=== PATIENT | female | born 1960 | race Caucasian/White ===

== ENCOUNTER → 2022-05-24 | Outpatient (CLI) | payer OTHER ==
--- NOTE | 2022-05-24 22:30 | MR ---
EXAMINATION TYPE: MR brain wo/w con DATE OF EXAM: 05/24/2022 COMPARISON: NONE HISTORY: DISORDERS OF UNSPECIFIED ACOUSTIC NERVE, jennings, dizziness, ringing in ears bilaterally. TECHNIQUE: Multiplanar, multisequence images of the brain and brainstem along with internal auditory canals are all performed without and with IV contrast, utilizing 6 mL intravenous Gadavist . FINDINGS: Diffusion weighted images demonstrate no evidence of a recent infarct or other diffusion ab normality. The ventricular system and cisternal spaces are normal in size and appearance. The brain volume is age appropriate. Scattered foci of T2 hyperintensity seen throughout the white matter bilat erally with more confluent lesions involving the deep parietal lobes. Lesions are nonspecific in appe arance and distribution. Old lacunar infarct right aspect of heena axial image 11. Midline structures demonstrate normal morphology. The craniocervical junction appears within normal limits. Post contrast images demonstrate no abnormal enhancement. The dural venous sinuses appear pa tent. The visualized sinuses are clear and the globes are intact. Some patchy increased fluid signal right mastoid air cells. The vestibulocochlear complexes are symme tric and felt within normal limits. There is no suspicious enhancing cerebellopontine angle mass iden tified bilaterally. IMPRESSION: Mild to moderate nonspecific white matter changes favor on the basis of product of chroni c small vessel ischemic change in patient of this age. Old lacunar infarct right aspect of heena. Poss ible mild right-sided mastoiditis, correlate clinically.
== END | disposition home or self-care (01) ==
LOC: RADMRIMAIN 05-19 09:00
PROVIDERS: ATTEND Otolaryngology
DX: H93.13 Tinnitus, bilateral (principal); R42 Dizziness and giddiness; R51.9 Headache, unspecified
CPT/HCPCS: 70553; A9585